=== PATIENT | female | born 1975 | race Caucasian/White ===

== ENCOUNTER → 2017-03-31 | Outpatient (CLI) | payer OTHER ==
--- NOTE | 2017-03-31 20:03 | Diagnostic Imaging Report ---
Bilateral screening mammogram The current study was also evaluated with a Computer Aided Detection (CAD) system. Indication: Screening. No current complaints stated on the questionnaire. COMPARISON: None. This is a baseline study. FINDINGS: The breasts are composed of scattered fibroglandular densities. There are occasional benign-appearing calcifications. No mass or suspicious calcifications, or architectural distortion is noted. IMPRESSION: No mammographic evidence of malignancy. Annual screening mammogram is recommended. ACR BI-RADS Category 2: Benign findings. Result letter will be mailed to the patient. Note: At least 10% of breast cancer is not imaged by mammography. Dictated by: Dictated on workstation # [id number]
== END ==
LOC: RAD 10:55
PROVIDERS: ATTEND Nurse Practitioner
DX: Z12.31 Encounter for screening mammogram for malignant neoplasm of breast (principal)
CPT/HCPCS: 77067

== ENCOUNTER 2021-04-22 16:57 | Emergency (ER) | payer SELFPAY ==
[~2021-04-22] VITALS: Ht 160 cm; Wt 82.1 kg
[2021-04-22 17:10] VITALS: BP 137/89
--- NOTE | 2021-04-22 17:25 | ED Integumentary General ---
General Chief Complaint: Skin/Wound Problems Stated Complaint: NOSE INFECTION Source: patient Exam Limitations: no limitations History of Present Illness Date Seen by Provider: Apr 22, 2021 Time Seen by Provider: 17:08 Initial Comments Patient to the ER by private conveyance with chief complaint of the last for 5days a sore that is draining's exudate on the right tip of her nose. She went to the clinic and was started on bacitracin and Bactrim which she has been on since the , 2 days now. She has not noticed improvement. She does not have immunocompromise or diabetes. She states is very painful. She is cleaning the wound daily with alcohol. Allergies and Home Medications Allergies Coded Allergies: No Known Drug Allergies (Unverified , 04/22/21) Patient Home Medication List Home Medication List Reviewed: Yes Review of Systems Review of Systems Constitutional: No chills, No diaphoresis EENTM: No ear discharge, No ear pain Respiratory: No cough, No short of breath Cardiovascular: No edema, No palpitations Gastrointestinal: No abdominal pain, No constipation, No nausea Genitourinary: No discharge, No dysuria Musculoskeletal: No back pain, No gout Past Jlnmamg-Ngfuzh-Fhcviw Hx Patient Social History Tobacco Use?: No Use of E-Cig and/or Vaping dev: No Physical Exam Vital Signs Capillary Refill : General Appearance: WD/WN, no apparent distress HEENT: PERRL/EOMI, TMs normal, pharynx normal Neck: full range of motion, normal inspection Cardiovascular: normal peripheral pulses, regular rate, rhythm Respiratory: no respiratory distress, no accessory muscle use Gastrointestinal: normal bowel sounds, non tender, soft Neurologic/Psychiatric: alert, normal mood/affect, oriented x 3 Skin: other (Erythematous excoriated eschar on the tip of the nose approximately 1 cm diameter with a tiny little bit of exudate. No fluctuance. Firm indurated erythema.) Progress/Results/Core Measures Results/Orders My Orders Orders - JENNIFER LUQUE Ceftriaxone (Rocephin) (04/22/21 17:30) Lidocaine 1% Inj 20 Ml (Xylocaine 1% Inj (04/22/21 17:30) Progress Progress Note : Time: 17:23 Progress Note No fluctuance palpable but we did offer to attempt to rd it which the patient decided was not a good idea. She just wants to do the antibiotics. We will give her a referral to ENT for follow-up. Rocephin IM x1 and double up Bactrim and start probiotics. Continue bacitracin and stop using astringents. Departure Impression Primary Impression: Bacterial folliculitis Disposition: HOME, SELF-CARE Condition: Stable Departure-Patient Inst. Decision time for Depature: 17:24 Referrals: FRANDY LAL MD Patient Instructions: Bacterial Folliculitis (DC) Add. Discharge Instructions: Keep the wound clean with soap and water only. Do not use iodine, hydrogen peroxide alcohol or chlorhexidine. Continue to treat with bacitracin as prescribed. To Bactrim DS twice a day for the next 7 days. Probiotics 1 capsule twice a day for the next 7 days. If you not seeing improvement in 2 to 3 days you may return to the ER or go to Dr. Lal's, ENT by calling for an appointment. All discharge instructions reviewed with patient and/or family. Voiced understanding. Scripts Hydrocodone/Acetaminophen (Hydrocodone-Acetamin 5-325 mg) 1 Each Tablet 1 TAB PO Q6H PRN for PAIN-MODERATE (5-7), #8 TAB 0 Refills Prov: JENNIFER LUQUE 04/22/21 Sulfamethoxazole/Trimethoprim (Bactrim Ds Tablet) 1 Each Tablet 2 EACH PO BID for 7 Days, #20 TAB 0 Refills Prov: JENNIFER LUQUE 04/22/21 Copy Copies To 1: FRANDY LAL MD, TITUS J Apr 22, 2021 17:25
[2021-04-22] MEDS ORDERED: ACHD5005 PO (17:26)
[2021-04-22] MEDS ORDERED: SULF1TAB38 PO (17:26)
[2021-04-22] MEDS ORDERED: LIDOCAINE 1% INJ 20 ML 20 ML VIAL INJ ONE (17:30)
[2021-04-22] MEDS ORDERED: cefTRIAXone 1,000 MG VIAL IM ONE (17:30)
== END 2021-04-22 17:42 | disposition home or self-care (01) ==
LOC: MERGE 17:02 → ER 17:02 → UNMERGE 17:02 → ER 17:42
DX: L73.9 Follicular disorder, unspecified (principal)
CPT/HCPCS: 99284